=== PATIENT | female | born 1990 | race African-American/Black ===

== ENCOUNTER 2020-11-13 16:35 | Emergency (ER) | payer OTHER, MEDICAID ==
[~2020-11-13] VITALS: Ht 162.6 cm; Wt 155.0 kg
[2020-11-13] MEDS ORDERED: IBUPROFEN 600MG TABLET PO ONE (18:15)
[2020-11-13 20:00] VITALS: BP 158/91
== END 2020-11-13 20:02 | disposition home or self-care (01) ==
LOC: ER 16:35
DX: R51.9 Headache, unspecified (principal); S63.501A Unspecified sprain of right wrist, initial encounter; M25.562 Pain in left knee; M25.561 Pain in right knee; F12.10 Cannabis abuse, uncomplicated; V49.9XXA Car occupant (driver) (passenger) injured in unspecified traffic accident, initial encounter; Y93.89 Activity, other specified; Y92.89 Other specified places as the place of occurrence of the external cause; Y99.8 Other external cause status
CPT/HCPCS: 29125; 73110; 73562; 99284

== ENCOUNTER 2021-11-13 16:48 | Emergency (ER) | payer MEDICAID, OTHER ==
[~2021-11-13] VITALS: Ht 162.6 cm; Wt 126.0 kg
[2021-11-13] MEDS ORDERED: ACETAMINOPHEN 325MG TABLET PO ONE (18:15)
[2021-11-13] MEDS ORDERED: TOPUD PO (18:50)
[2021-11-13 19:01] VITALS: BP 147/73
== END 2021-11-13 19:02 | disposition home or self-care (01) ==
LOC: ER 16:48
DX: U07.1 COVID-19 (principal); F12.10 Cannabis abuse, uncomplicated
CPT/HCPCS: 71045; 99284; C9803; U0003; U0005